=== PATIENT | male | born 1985 | race Caucasian/White ===

== ENCOUNTER 2021-09-26 17:38 | Emergency (ER) | payer SELFPAY | END 2021-09-26 18:05 | disposition home or self-care (01) | LOC: ERS 17:38 | DX: M54.50 Low back pain, unspecified (principal); J45.909 Unspecified asthma, uncomplicated; F17.220 Nicotine dependence, chewing tobacco, uncomplicated | CPT/HCPCS: 99283 ==

== ENCOUNTER 2025-05-09 23:05 | Inpatient (IN) | payer MEDICARE ==
[2025-05-10] MEDS ORDERED: Ondansetron PF 4 MG/2 ML Vial IVP PRN (00:20)
[2025-05-10 00:25] VITALS: BMI 20.9
[2025-05-10] MEDS: Boostrix 0.5 ML (Tdap) VIAL (>/=7 yrs of age) IM ONE (02:48)
[2025-05-10 03:55] LABS: Cocaine Metabolite Screen Negative (Negative); THC/Cannabinoid Screen PRELIM POSITIVE (Negative); Tricyclic Screen Negative (Negative)
[2025-05-10 06:06] LABS: #Basophils Less than 0.03 10x3/uL (0.0-0.2); #Eosinophils Less than 0.03 10x3/uL (0.0-0.7); #Monocytes 0.40 10x3/uL (0.11-0.59); #Neutrophils 10.62 10x3/uL (1.40-6.50); %Basophils 0.1 % (0.0-1.0); %Eosinophils 0.0 % (0.0-10.0); %Lymphocytes 9.3 % (21.0-51.0); %Monocytes 3.3 % (0.0-10.0); %Neutrophils 86.8 % (42.0-75.0); Hematocrit 37.7 % (42.0-52.0); Hemoglobin 12.0 g/dL (14.0-18.0); Mean Corpuscular Hemoglobin 29.2 pg (27.0-31.0); Mean Corpuscular Volume 91.7 fL (78.0-98.0); Platelet Count 242 10x3/uL (130-400); Red Blood Cell (RBC) Count 4.11 mill/uL (4.70-6.10); White Blood Cell (WBC) Count 12.23 10x3/uL (4.8-10.8)
[2025-05-10 07:07] LABS: Anion Gap 13 mmol/L (10-20); BUN (Urea Nitrogen) 11 mg/dL (8.9-20.6); Calc. Creatinine Clearance 126 mL/min (70-130); Calcium 8.3 mg/dL (7.8-10.44); Carbon Dioxide 23 mmol/L (22-29); Chloride 109 mmol/L (98-107); Glucose 201 mg/dL (70-105); Potassium 3.8 mmol/L (3.5-5.1); Sodium 141 mmol/L (136-145)
[2025-05-10] MEDS: cefTRIAXone\\ROCEPHIN 1 GM in Sodium Chloride 0.9% 100 ML IVPB SCH (08:36)
[2025-05-10] MEDS: Ketorolac Tromethamine 30 MG (1 mL) VIAL IVP PRN (08:45)
[2025-05-10] MEDS: Guaifenesin DM 100-10/5 ML UDCUP PO PRN (23:12)
[2025-05-11 06:36] LABS: #Basophils 0.03 10x3/uL (0.0-0.2); #Eosinophils 0.19 10x3/uL (0.0-0.7); #Monocytes 0.74 10x3/uL (0.11-0.59); #Neutrophils 7.64 10x3/uL (1.40-6.50); %Basophils 0.3 % (0.0-1.0); %Eosinophils 1.7 % (0.0-10.0); %Lymphocytes 24.0 % (21.0-51.0); %Monocytes 6.5 % (0.0-10.0); %Neutrophils 67.0 % (42.0-75.0); Hematocrit 38.1 % (42.0-52.0); Hemoglobin 12.3 g/dL (14.0-18.0); Mean Corpuscular Hemoglobin 29.1 pg (27.0-31.0); Mean Corpuscular Volume 90.3 fL (78.0-98.0); Platelet Count 239 10x3/uL (130-400); Red Blood Cell (RBC) Count 4.22 mill/uL (4.70-6.10); White Blood Cell (WBC) Count 11.40 10x3/uL (4.8-10.8)
[2025-05-11 06:53] LABS: Anion Gap 12 mmol/L (10-20); BUN (Urea Nitrogen) 10 mg/dL (8.9-20.6); Calc. Creatinine Clearance 152 mL/min (70-130); Calcium 8.0 mg/dL (7.8-10.44); Carbon Dioxide 26 mmol/L (22-29); Chloride 107 mmol/L (98-107); Glucose 91 mg/dL (70-105); Potassium 3.6 mmol/L (3.5-5.1); Sodium 141 mmol/L (136-145); Vancomycin, Random 8.5 ug/mL (See Comment)
[2025-05-11] MEDS: Acetaminophen 325 MG TAB PO PRN (08:00)
[2025-05-11] MEDS: Vancomycin 1 GM in Premix 1 BAG IVPB SCH (15:48)
[2025-05-12 05:27] LABS: #Basophils 0.05 10x3/uL (0.0-0.2); #Eosinophils 0.23 10x3/uL (0.0-0.7); #Monocytes 0.67 10x3/uL (0.11-0.59); #Neutrophils 4.99 10x3/uL (1.40-6.50); %Basophils 0.6 % (0.0-1.0); %Eosinophils 2.7 % (0.0-10.0); %Lymphocytes 30.5 % (21.0-51.0); %Monocytes 7.7 % (0.0-10.0); %Neutrophils 57.7 % (42.0-75.0); Hematocrit 41.6 % (42.0-52.0); Hemoglobin 13.3 g/dL (14.0-18.0); Mean Corpuscular Hemoglobin 28.5 pg (27.0-31.0); Mean Corpuscular Volume 89.1 fL (78.0-98.0); Platelet Count 300 10x3/uL (130-400); Red Blood Cell (RBC) Count 4.67 mill/uL (4.70-6.10); White Blood Cell (WBC) Count 8.65 10x3/uL (4.8-10.8)
[2025-05-12 20:15] VITALS: BP 106/68; TEMP 97.9
== END 2025-05-12 21:50 | disposition home or self-care (01) | DRG 603 ==
LOC: T4-A 23:56 → OBSVTOIN 23:56
PROVIDERS: ADMIT Student in an Organized Health Care Education/Training Program; ATTEND Family Medicine
DX: L02.413 Cutaneous abscess of right upper limb (principal); F31.9 Bipolar disorder, unspecified; F41.9 Anxiety disorder, unspecified; F15.10 Other stimulant abuse, uncomplicated; L03.113 Cellulitis of right upper limb; F12.10 Cannabis abuse, uncomplicated; Z88.0 Allergy status to penicillin; Z88.8 Allergy status to other drugs, medicaments and biological substances; Z79.899 Other long term (current) drug therapy
CPT/HCPCS: 36415; 76999; 80048; 80202; 80306; 85025; 87070; 87077; 87186; 87205; 90715; 97139; J0696; J1885; J2270; J3373; J7050